=== PATIENT | male | born 1990 | race Two or more races ===

== ENCOUNTER → 2023-09-04 | Emergency (ER) | payer SELFPAY ==
[~2023-09-04] VITALS: Ht 188 cm; Wt 90.7 kg
[2023-09-04 13:37] VITALS: BP 139/91; TEMP 98.3; O2SAT 99
== END | disposition home or self-care (01) ==
LOC: ER 12:43
DX: M25.562 Pain in left knee (principal); M25.561 Pain in right knee; V89.2XXA Person injured in unspecified motor-vehicle accident, traffic, initial encounter; Y93.89 Activity, other specified; Y92.89 Other specified places as the place of occurrence of the external cause; Y99.8 Other external cause status
CPT/HCPCS: 73564-TC